=== PATIENT | male | born 1970 | race Caucasian/White ===

== ENCOUNTER 2017-06-12 02:05 | Inpatient (IN) | payer MEDICAID ==
[~2017-06-12] VITALS: Ht 185.4 cm; Wt 91.5 kg
[~2017-06-12 02:05] MED LIST: ATEN-60 PO; PANC3000 PO
[2017-06-12] MEDS ORDERED: ONDANSETRON HCL 4 MG/2 ML VIAL IV ONE ×2 (02:30→07:45)
[2017-06-12] MEDS ORDERED: HYDROmorphone HCL 2 MG/ML VL IV ONE ×2 (02:30→07:45)
[2017-06-12] MEDS: SODIUM CHLORIDE 0.9% 2,000 ML IV ONE ×2 (02:30→03:00)
[2017-06-12 03:04] LABS: Basophils # (auto) 0 uL; Eosinophils # (auto) 0.1 uL; Eosinophils % (auto) 1.9 % (0.0-7.0); Hemoglobin 16.5 g/dL (13.5-17.5); White Blood Cell 5.8 10^3/uL (4.4-10.8)
[2017-06-12 03:06] LABS: Basophils % (auto) 0.4 % (0.0-2.0); Hematocrit 47.7 % (41.0-53.0); Lymphocytes # (auto) 2.7 uL; Mean Corpuscular Hemoglobin 36.9 pg (28.0-32.0); Mean Corpuscular Hgb Conc. 34.6 g/dL (32.0-36.0); Mean Corpuscular Volume 106.7 fL (80.0-100.0); Monocytes # (auto) 0.5 uL; Monocytes % (auto) 8.2 % (0.0-12.0); Neutrophils # (auto) 2.5 uL; Neutrophils % (auto) 43.5 % (37.0-80.0); Nucleated Red Blood Cells % 0.2 %; Red Blood Cells 4.47 10^6/uL (4.5-5.90); Red Cell Distribution Width 14.3 % (11.8-14.3)
[2017-06-12 03:50] LABS: Albumin 3.4 g/dL (3.4-5.0); BUN/Creatinine Ratio 5.8; Bilirubin, Total 3.1 mg/dL (0.2-1.0); Calcium 8.8 mg/dL (8.5-10.1); Lactic Acid w/Reflex 2.2 mmol/L (0.4-2.0); Potassium 3.5 mmol/L (3.5-5.1); Total Protein 8.4 g/dL (6.4-8.2)
[2017-06-12 04:24] LABS: Platelet Count (auto) 56 10^3/uL (140-450)
[2017-06-12] MEDS ORDERED: PROMETHAZINE HCL 25 MG/ML 1ML IV ONE (04:45)
[2017-06-12] MEDS ORDERED: diphenhdrAMINE HCL 50 MG/1 ML VL IV ONE (04:45)
[2017-06-12 05:11] LABS: Urine Bacteria NONE SEEN /hpf (None Seen); Urine Blood Negative /uL (Negative); Urine Hyaline Cast MOD /lpf (0 - 2); Urine Mucus FEW (None Seen); Urine Specific Gravity 1.019 (1.001-1.035); Urine WBC 2 /hpf (0 - 3)
[2017-06-12] MEDS ORDERED: VANCOMYCIN 1GM/250ML 250 ML IV ONE (06:00)
[2017-06-12] MEDS ORDERED: TEMAZEPAM 15 MG CAP PO PRN (09:15)
[2017-06-12] MEDS ORDERED: NITROGLYCERIN 0.4 MG SL TAB SL PRN (09:15)
[2017-06-12] MEDS ORDERED: ACETAMINOPHEN 325 MG TAB PO PRN (09:15)
[2017-06-12] MEDS ORDERED: VANCOMYCIN PER PHARMACY 0 MG IV SCH (09:15)
[2017-06-12] MEDS ORDERED: DEXTROSE (50%) 50ML SYRG IV PRN (09:30)
[2017-06-12] MEDS ORDERED: FAMOTIDINE 20 MG TAB PO SCH (10:00)
[2017-06-12] MEDS: MULTIPLE VITAMIN TAB PO SCH (10:02)
[2017-06-12] MEDS: ATENOLOL 25 MG TAB PO SCH (10:04)
[2017-06-12] MEDS: SODIUM CHLORIDE 0.9% 1,000 ML IV SCH ×2 (10:07→17:33)
[2017-06-12] MEDS: LEVOFLOXACIN 500MG 100 ML IV SCH (10:07)
[2017-06-12] MEDS: diphenhdrAMINE HCL 25 MG CAP PO PRN ×2 (10:30→17:08)
[2017-06-12 10:33] LABS: Albumin 2.8 g/dL (3.4-5.0); BUN/Creatinine Ratio 6.3; Bilirubin, Total 2.7 mg/dL (0.2-1.0); Calcium 7.9 mg/dL (8.5-10.1); Potassium 3.6 mmol/L (3.5-5.1); Total Protein 6.6 g/dL (6.4-8.2)
[2017-06-12] MEDS: InsuLIN REG 1unit/0.01ml Soln (100units/ml) SC SCH ×3 (11:30→22:00)
[2017-06-12] MEDS: HYDROmorphone HCL 2 MG/ML VL IV PRN ×3 (11:45→20:29)
[2017-06-12] MEDS: ONDANSETRON HCL 4 MG/2 ML VIAL IV PRN ×3 (11:45→20:29)
[2017-06-12] MEDS: ACCU-CHEK COMFORT CURVE STRIP VI SCH ×3 (11:47→22:07)
[2017-06-12] MEDS: PANCREATIC ENZYMES 4200 UNIT CAP PO SCH ×2 (13:03→18:04)
[2017-06-12] MEDS: RIFAXIMIN 550 MG TAB PO SCH ×2 (13:53→22:07)
[2017-06-12] MEDS: HYDROcodone-ACET 5/325MG TAB PO PRN ×2 (14:12→18:05)
[2017-06-12 15:39] LABS: INR 1.14 (0.9-1.15); Prothrombin Time 12.4 sec (9.37-12.3)
[2017-06-12] MEDS: VANCOMYCIN 1GM/250ML 250 ML IV SCH (18:05)
[2017-06-12 21:55] VITALS: BP 128/77
[2017-06-12] MEDS: PANTOPRAZOLE 40 MG TAB PO SCH (22:07)
[2017-06-13] MEDS: ONDANSETRON HCL 4 MG/2 ML VIAL IV PRN ×5 (00:16→22:13)
[2017-06-13] MEDS: HYDROmorphone HCL 2 MG/ML VL IV PRN ×6 (00:16→22:13)
[2017-06-13] MEDS: SODIUM CHLORIDE 0.9% 1,000 ML IV SCH ×4 (01:53→23:44)
[2017-06-13] MEDS: HYDROcodone-ACET 5/325MG TAB PO PRN ×3 (02:31→20:30)
[2017-06-13 05:15] VITALS: BP 124/84
[2017-06-13 06:52] LABS: Basophils # (auto) 0 uL; Eosinophils # (auto) 0.2 uL; Hemoglobin 12.9 g/dL (13.5-17.5); Lymphocytes # (auto) 2.1 uL; Lymphocytes % (auto) 48.7 % (10.0-50.0); Monocytes # (auto) 0.3 uL; Neutrophils # (auto) 1.7 uL; White Blood Cell 4.4 10^3/uL (4.4-10.8)
[2017-06-13 06:58] LABS: Basophils % (auto) 0.6 % (0.0-2.0); Eosinophils % (auto) 4.1 % (0.0-7.0); Hematocrit 37.7 % (41.0-53.0); Mean Corpuscular Hemoglobin 37.2 pg (28.0-32.0); Mean Corpuscular Hgb Conc. 34.3 g/dL (32.0-36.0); Mean Corpuscular Volume 108.4 fL (80.0-100.0); Monocytes % (auto) 7.5 % (0.0-12.0); Neutrophils % (auto) 39.1 % (37.0-80.0); Nucleated Red Blood Cells % 0.3 %; Platelet Count (auto) 43 10^3/uL (140-450); Red Blood Cells 3.48 10^6/uL (4.5-5.90); Red Cell Distribution Width 14.2 % (11.8-14.3)
[2017-06-13] MEDS: InsuLIN REG 1unit/0.01ml Soln (100units/ml) SC SCH ×2 (07:00→11:30)
[2017-06-13] MEDS: ACCU-CHEK COMFORT CURVE STRIP VI SCH ×2 (07:07→11:46)
[2017-06-13 07:32] LABS: Albumin 2.6 g/dL (3.4-5.0); BUN/Creatinine Ratio 4.7; Bilirubin, Total 2.4 mg/dL (0.2-1.0); Calcium 7.9 mg/dL (8.5-10.1); Potassium 3.8 mmol/L (3.5-5.1); Total Protein 6.2 g/dL (6.4-8.2)
[2017-06-13 08:00] VITALS: BP 119/79
[2017-06-13] MEDS: PANCREATIC ENZYMES 4200 UNIT CAP PO SCH ×4 (08:00→18:01)
[2017-06-13] MEDS: VANCOMYCIN 1GM/250ML 250 ML IV SCH (08:18)
[2017-06-13 08:51] VITALS: BP 119/79
[2017-06-13] MEDS ORDERED: LIDOCAINE VISCOUS 2% 15ML UD ONE (08:57)
[2017-06-13] MEDS ORDERED: NALOXONE HCL 0.4 MG/ML VIAL ONE (08:57)
[2017-06-13] MEDS ORDERED: FLUMAZENIL 0.1 MG/ML INJ 10ML MDV IV ONE (08:57)
[2017-06-13] MEDS ORDERED: SODIUM CHLORIDE LOCK 10 ML ONE (08:57)
[2017-06-13] MEDS ORDERED: diphenhdrAMINE HCL 50 MG/1 ML VL ONE (08:57)
[2017-06-13] MEDS: MULTIPLE VITAMIN TAB PO SCH (09:45)
[2017-06-13] MEDS: ATENOLOL 25 MG TAB PO SCH (09:45)
[2017-06-13] MEDS: LEVOFLOXACIN 500MG 100 ML IV SCH (09:45)
[2017-06-13] MEDS: PANTOPRAZOLE 40 MG TAB PO SCH ×2 (09:45→21:24)
[2017-06-13] MEDS: RIFAXIMIN 550 MG TAB PO SCH ×3 (09:46→21:23)
[2017-06-13] MEDS: MIDAZOLAM HCL 5 MG/ML-1ML VIAL ONE ×2 (12:21→12:25)
[2017-06-13] MEDS: diphenhdrAMINE HCL 25 MG CAP PO PRN (12:21)
[2017-06-13] MEDS: fentaNYL CITRATE 100 MCG/2 ML VL ONE ×2 (12:21→12:25)
[2017-06-13 12:37] VITALS: BP 150/89
[2017-06-13] MEDS ORDERED: NICOTINE 21MG/24 HR TOPICAL PATCH TD ONE (15:15)
[2017-06-13 16:19] VITALS: BP 120/86
[2017-06-13 20:00] VITALS: BP 142/100
[2017-06-14] VITALS (7 sets, daily range): BP systolic 126–148; BP diastolic 90–100
[2017-06-14] MEDS: HYDROcodone-ACET 5/325MG TAB PO PRN ×5 (00:33→22:11)
[2017-06-14] MEDS: HYDROmorphone HCL 2 MG/ML VL IV PRN ×6 (02:29→23:35)
[2017-06-14] MEDS: ONDANSETRON HCL 4 MG/2 ML VIAL IV PRN ×6 (02:30→23:32)
[2017-06-14] MEDS: SODIUM CHLORIDE 0.9% 1,000 ML IV SCH ×2 (06:10→22:12)
[2017-06-14 07:39] LABS: Basophils # (auto) 0 uL; Eosinophils # (auto) 0.2 uL; Neutrophils # (auto) 1.6 uL
[2017-06-14 07:41] LABS: Basophils % (auto) 0.8 % (0.0-2.0); Eosinophils % (auto) 3.6 % (0.0-7.0); Hemoglobin 12.9 g/dL (13.5-17.5); Lymphocytes # (auto) 2.5 uL; Lymphocytes % (auto) 53.9 % (10.0-50.0); Mean Corpuscular Hemoglobin 36.7 pg (28.0-32.0); Mean Corpuscular Volume 107.9 fL (80.0-100.0); Monocytes # (auto) 0.3 uL; Monocytes % (auto) 7.5 % (0.0-12.0); Neutrophils % (auto) 34.2 % (37.0-80.0); Nucleated Red Blood Cells % 0.3 %; Platelet Count (auto) 48 10^3/uL (140-450); Red Blood Cells 3.52 10^6/uL (4.5-5.90); Red Cell Distribution Width 14.3 % (11.8-14.3); White Blood Cell 4.6 10^3/uL (4.4-10.8)
[2017-06-14 07:59] LABS: Albumin 2.7 g/dL (3.4-5.0); Bilirubin, Direct 1.1 mg/dL (0-0.2); Total Protein 6.3 g/dL (6.4-8.2)
[2017-06-14] MEDS: PANCREATIC ENZYMES 4200 UNIT CAP PO SCH ×3 (08:26→18:24)
[2017-06-14] MEDS: NICOTINE 21MG/24 HR TOPICAL PATCH TD SCH (10:00)
[2017-06-14] MEDS: MULTIPLE VITAMIN TAB PO SCH (10:28)
[2017-06-14] MEDS: PANTOPRAZOLE 40 MG TAB PO SCH ×2 (10:28→22:10)
[2017-06-14] MEDS: ATENOLOL 25 MG TAB PO SCH (10:30)
[2017-06-14] MEDS: RIFAXIMIN 550 MG TAB PO SCH ×2 (10:32→22:10)
[2017-06-15] MEDS: HYDROcodone-ACET 5/325MG TAB PO PRN ×4 (02:13→12:56)
[2017-06-15] MEDS: SODIUM CHLORIDE 0.9% 1,000 ML IV SCH ×2 (05:20→11:43)
[2017-06-15 05:29] VITALS: BP 149/94
[2017-06-15] MEDS: HYDROmorphone HCL 2 MG/ML VL IV PRN ×3 (06:13→14:50)
[2017-06-15] MEDS: ONDANSETRON HCL 4 MG/2 ML VIAL IV PRN ×3 (06:13→14:53)
[2017-06-15 07:32] LABS: Albumin 2.7 g/dL (3.4-5.0); Bilirubin, Direct 0.8 mg/dL (0-0.2); Bilirubin, Total 1.5 mg/dL (0.2-1.0); Total Protein 6.1 g/dL (6.4-8.2)
[2017-06-15 08:00] VITALS: BP 149/93
[2017-06-15] MEDS: PANCREATIC ENZYMES 4200 UNIT CAP PO SCH ×2 (08:22→11:43)
[2017-06-15 08:53] VITALS: BP 149/93
[2017-06-15] MEDS: MULTIPLE VITAMIN TAB PO SCH (09:04)
[2017-06-15] MEDS: ATENOLOL 25 MG TAB PO SCH (09:04)
[2017-06-15] MEDS: PANTOPRAZOLE 40 MG TAB PO SCH (09:05)
[2017-06-15] MEDS: RIFAXIMIN 550 MG TAB PO SCH (09:05)
[2017-06-15] MEDS: NICOTINE 21MG/24 HR TOPICAL PATCH TD SCH ×2 (09:06→09:09)
[2017-06-15 13:49] VITALS: BP 145/97
[2017-06-15] MEDS ORDERED: OMEP20CA74 PO (14:04)
[2017-06-15] MEDS ORDERED: HYDR-4683 PO ×2 (14:04→15:12)
[2017-06-15] MEDS ORDERED: FOLI1TAB6 PO (14:04)
[2017-06-15] MEDS ORDERED: RIFA550T PO (15:12)
[2017-06-15 15:53] VITALS: BP 145/97
[2017-06-16] MEDS ORDERED: SODIUM CHLORIDE 0.9% 1,000 ML IV SCH (09:13)
== END 2017-06-15 16:40 | disposition home or self-care (01) | DRG 720 ==
LOC: ER 02:12 → TELE 02:13 → TELE-WESTW 17:12
PROVIDERS: ADMIT Internal Medicine; ATTEND Internal Medicine
PROC: 0DJ08ZZ Inspection of Upper Intestinal Tract, Via Natural or Artificial Opening Endoscopic (ICD-10-PCS; principal; 2017-06-13 12:19)
DX: A41.9 Sepsis, unspecified organism (principal); K76.6 Portal hypertension; D69.6 Thrombocytopenia, unspecified; K86.1 Other chronic pancreatitis; K86.81 Exocrine pancreatic insufficiency; K70.30 Alcoholic cirrhosis of liver without ascites; I12.9 Hypertensive chronic kidney disease with stage 1 through stage 4 chronic kidney disease, or unspecified chronic kidney disease; K57.30 Diverticulosis of large intestine without perforation or abscess without bleeding; K21.9 Gastro-esophageal reflux disease without esophagitis; I70.8 Atherosclerosis of other arteries; E86.0 Dehydration; F17.210 Nicotine dependence, cigarettes, uncomplicated; R73.9 Hyperglycemia, unspecified; K31.89 Other diseases of stomach and duodenum; K76.0 Fatty (change of) liver, not elsewhere classified; N18.2 Chronic kidney disease, stage 2 (mild); Z90.49 Acquired absence of other specified parts of digestive tract; Z88.1 Allergy status to other antibiotic agents; Z88.5 Allergy status to narcotic agent; Z79.899 Other long term (current) drug therapy; Z80.8 Family history of malignant neoplasm of other organs or systems; Z82.49 Family history of ischemic heart disease and other diseases of the circulatory system; Z71.3 Dietary counseling and surveillance
CPT/HCPCS: 36415; 43235; 74176; 80053; 80076; 81001; 82140; 82150; 82270; 82705; 82962; 83036; 83605; 83690; 85025; 85610; 87040; 87086; 96361; 96365; 96366; 96367; 96375; 96376; J1956; J2250; J2405

== ENCOUNTER 2017-07-17 06:37 | Emergency (ER) | payer MEDICAID ==
[~2017-07-17] VITALS: Ht 182.9 cm; Wt 79.2 kg
[~2017-07-17 06:37] MED LIST changes: +FOLI1TAB6 PO; +HYDR-4683 PO; +OMEP20CA74 PO; +RIFA550T PO
[2017-07-17] MEDS ORDERED: MORPHINE SULF INJ 2 MG/ML SYRINGE 1ML IV ONE (08:00)
[2017-07-17] MEDS ORDERED: NALBUPHINE HCL 10 MG/1ml INJECTION IV ONE (08:00)
[2017-07-17] MEDS ORDERED: ONDANSETRON HCL 4 MG/2 ML VIAL IV ONE (08:00)
[2017-07-17 08:23] LABS: Basophils # (auto) 0.1 uL; Basophils % (auto) 0.8 % (0.0-2.0); Eosinophils # (auto) 0.8 uL; Lymphocytes # (auto) 2.9 uL; Lymphocytes % (auto) 29.2 % (10.0-50.0); Monocytes # (auto) 0.9 uL; Neutrophils # (auto) 5.3 uL
[2017-07-17 08:26] LABS: Eosinophils % (auto) 8.4 % (0.0-7.0); Hematocrit 41.7 % (41.0-53.0); Hemoglobin 14.7 g/dL (13.5-17.5); Mean Corpuscular Hemoglobin 35.9 pg (28.0-32.0); Mean Corpuscular Hgb Conc. 35.2 g/dL (32.0-36.0); Mean Platelet Volume 11.4 fL (6.9-10.8); Monocytes % (auto) 8.7 % (0.0-12.0); Neutrophils % (auto) 52.9 % (37.0-80.0); Nucleated Red Blood Cells % 0.1 %; Red Cell Distribution Width 12.9 % (11.8-14.3)
[2017-07-17 08:38] LABS: Urine Bilirubin Negative (Negative); Urine Blood Negative /uL (Negative); Urine Color Yellow (Yellow); Urine Glucose Normal (Normal); Urine Ketone Negative (Negative); Urine Nitrite Negative (Negative); Urine RBC <1 /hpf (0 - 3); Urine Urobilinogen Normal (Negative)
[2017-07-17 08:40] LABS: Platelet Count (auto) 92 10^3/uL (140-450)
[2017-07-17 09:02] LABS: Albumin 3.6 g/dL (3.4-5.0); Alkaline Phosphatase 82 U/L (45-117); Amylase 28 U/L (25-115); Anion Gap 8 (5-15); Aspartate Aminotransferase 16 U/L (15-37); BUN/Creatinine Ratio 11.1; Bilirubin, Total 0.6 mg/dL (0.2-1.0); Blood Urea Nitrogen 8 mg/dL (7-18); Calcium 8.8 mg/dL (8.5-10.1); Carbon Dioxide 28 mmol/L (21-32); Chloride 96 mmol/L (98-107); GFR African American 153 mL/min; GFR Non-African American 126 mL/min; Glucose 128 mg/dL (74-106); Sodium 132 mmol/L (136-145); Total Protein 7.2 g/dL (6.4-8.2)
[2017-07-17 09:30] VITALS: BP 119/78
[2017-07-17] MEDS ORDERED: diphenhdrAMINE HCL 50 MG/1 ML VL IV ONE (09:30)
[2017-07-17 09:50] LABS: Macrocytosis Slight; Platelet Estimate Decreased; Stomatocytes Few
== END 2017-07-17 10:10 | disposition home or self-care (01) ==
LOC: ER 06:44
DX: K86.1 Other chronic pancreatitis (principal); K21.9 Gastro-esophageal reflux disease without esophagitis; I10 Essential (primary) hypertension; F17.210 Nicotine dependence, cigarettes, uncomplicated; Z90.49 Acquired absence of other specified parts of digestive tract; Z88.6 Allergy status to analgesic agent
CPT/HCPCS: 36415; 74176; 80053; 81001; 82150; 83690; 83735; 84484; 85025; 93005; 96374; 96375; 99285; J1200; J2300; J2405

== ENCOUNTER 2017-09-05 08:19 | Emergency (ER) | payer MEDICAID ==
[~2017-09-05] VITALS: Ht 185.4 cm; Wt 86.2 kg
[2017-09-05 10:49] LABS: Mean Corpuscular Hemoglobin 35.4 pg (28.0-32.0); Neutrophils # (auto) 1.9 uL; White Blood Cell 6.9 10^3/uL (4.4-10.8)
[2017-09-05 10:51] LABS: Basophils # (auto) 0 uL; Basophils % (auto) 0.7 % (0.0-2.0); Eosinophils # (auto) 0.8 uL; Eosinophils % (auto) 11.3 % (0.0-7.0); Hemoglobin 15.3 g/dL (13.5-17.5); Lymphocytes # (auto) 3.4 uL; Lymphocytes % (auto) 48.7 % (10.0-50.0); Mean Corpuscular Hgb Conc. 34.7 g/dL (32.0-36.0); Mean Corpuscular Volume 102.1 fL (80.0-100.0); Monocytes # (auto) 0.8 uL; Monocytes % (auto) 11.2 % (0.0-12.0); Neutrophils % (auto) 28.1 % (37.0-80.0); Nucleated Red Blood Cells % 0.1 %; Red Blood Cells 4.31 10^6/uL (4.5-5.90); Red Cell Distribution Width 12.6 % (11.8-14.3)
[2017-09-05 11:10] LABS: Albumin 3.8 g/dL (3.4-5.0); BUN/Creatinine Ratio 8.9; Bilirubin, Total 0.4 mg/dL (0.2-1.0); Calcium 8.7 mg/dL (8.5-10.1); Potassium 3.8 mmol/L (3.5-5.1); Total Protein 7.7 g/dL (6.4-8.2)
[2017-09-05 11:12] LABS: Platelet Count (auto) 98 10^3/uL (140-450)
[2017-09-05 11:33] VITALS: BP 137/88
== END 2017-09-05 11:55 | disposition home or self-care (01) ==
LOC: ER 08:19
DX: K86.1 Other chronic pancreatitis (principal); K59.00 Constipation, unspecified; K21.9 Gastro-esophageal reflux disease without esophagitis; I10 Essential (primary) hypertension; F17.210 Nicotine dependence, cigarettes, uncomplicated; Z88.1 Allergy status to other antibiotic agents; Z88.5 Allergy status to narcotic agent; Z88.8 Allergy status to other drugs, medicaments and biological substances; Z90.49 Acquired absence of other specified parts of digestive tract
CPT/HCPCS: 36415; 74176; 80053; 82962; 83690; 85025

== ENCOUNTER 2018-04-11 07:24 | Emergency (ER) | payer MEDICAID ==
[~2018-04-11] VITALS: Ht 185.4 cm; Wt 86.2 kg
[2018-04-11 08:41] LABS: Basophils # (auto) 0.1 uL; Hemoglobin 16.1 g/dL (13.5-17.5); Lymphocytes # (auto) 3.7 uL; Mean Corpuscular Hgb Conc. 34.7 g/dL (32.0-36.0); Monocytes # (auto) 0.6 uL; Monocytes % (auto) 7.9 % (0.0-12.0)
[2018-04-11 08:43] LABS: Basophils % (auto) 0.8 % (0.0-2.0); Eosinophils # (auto) 0.5 uL; Eosinophils % (auto) 5.9 % (0.0-7.0); Hematocrit 46.2 % (41.0-53.0); Lymphocytes % (auto) 47.1 % (10.0-50.0); Mean Corpuscular Hemoglobin 36.1 pg (28.0-32.0); Mean Corpuscular Volume 103.9 fL (80.0-100.0); Neutrophils % (auto) 38.3 % (37.0-80.0); Nucleated Red Blood Cells % 0.1 %; Platelet Count (auto) 150 10^3/uL (140-450); Red Blood Cells 4.45 10^6/uL (4.5-5.90); Red Cell Distribution Width 12.6 % (11.8-14.3); White Blood Cell 7.8 10^3/uL (4.4-10.8)
[2018-04-11 08:45] LABS: Urine Bacteria FEW /hpf (None Seen); Urine Blood Negative /uL (Negative); Urine Specific Gravity 1.002 (1.001-1.035); Urine WBC <1 /hpf (0 - 3)
[2018-04-11 09:01] LABS: BUN/Creatinine Ratio 11.4; Bilirubin, Total 0.5 mg/dL (0.2-1.0); Calcium 8.2 mg/dL (8.5-10.1)
[2018-04-11 12:35] VITALS: BP 129/87
== END 2018-04-11 13:30 | disposition home or self-care (01) ==
LOC: ER 07:27
DX: S90.31XA Contusion of right foot, initial encounter (principal); R10.9 Unspecified abdominal pain; G89.29 Other chronic pain; K21.9 Gastro-esophageal reflux disease without esophagitis; I10 Essential (primary) hypertension; F17.210 Nicotine dependence, cigarettes, uncomplicated; Z88.5 Allergy status to narcotic agent; Z88.8 Allergy status to other drugs, medicaments and biological substances; Z90.49 Acquired absence of other specified parts of digestive tract; W18.39XA Other fall on same level, initial encounter; Y93.89 Activity, other specified; Y99.8 Other external cause status; Y92.89 Other specified places as the place of occurrence of the external cause
CPT/HCPCS: 36415; 73630; 74176; 80053; 81001; 83690; 84443; 85025

== ENCOUNTER 2019-11-09 19:21 | Emergency (ER) | payer MEDICAID, SELFPAY ==
[~2019-11-09] VITALS: Ht 185.4 cm; Wt 78.6 kg
[~2019-11-09 19:21] MED LIST changes: -HYDR-4683 PO; +HYDR-4833 PO
[2019-11-09 21:10] VITALS: BP 128/60
[2019-11-09 21:28] LABS: Urine WBC None Seen /hpf (0 - 3)
[2019-11-09 21:33] LABS: Urine Bacteria NONE SEEN /hpf (None Seen); Urine Blood Negative /uL (Negative); Urine Specific Gravity 1.006 (1.001-1.035)
[2019-11-09 21:34] LABS: Basophils # (auto) 0.1 10 ^3/uL (0-0.2); Eosinophils # (auto) 0.4 10 ^3/uL (0-0.8); Nucleated Red Blood Cells % 0.1 %; White Blood Cell 7.1 10^3/uL (4.4-10.8)
[2019-11-09 21:35] LABS: Basophils % (auto) 1.5 % (0.0-2.0); Eosinophils % (auto) 5.9 % (0.0-7.0); Hematocrit 48.4 % (41.0-53.0); Hemoglobin 16.7 g/dL (13.5-17.5); Lymphocytes # (auto) 3.7 10 ^3/uL (0.4-5.4); Lymphocytes % (auto) 51.8 % (10.0-50.0); Mean Corpuscular Hemoglobin 37.6 pg (28.0-32.0); Mean Corpuscular Hgb Conc. 34.6 g/dL (32.0-36.0); Mean Corpuscular Volume 108.7 fL (80.0-100.0); Monocytes # (auto) 0.6 10 ^3/uL (0-1.3); Monocytes % (auto) 8.7 % (0.0-12.0); Neutrophils # (auto) 2.3 10 ^3/uL (1.6-8.6); Neutrophils % (auto) 32.1 % (37.0-80.0); Platelet Count (auto) 139 10^3/uL (140-450); Red Blood Cells 4.45 10^6/uL (4.5-5.90); Red Cell Distribution Width 12.6 % (11.8-14.3)
[2019-11-09 21:48] LABS: Alanine Aminotransferase 47 U/L (16-61); Albumin 4.1 g/dL (3.4-5.0); Anion Gap 9 (5-15); Aspartate Aminotransferase 34 U/L (15-37); BUN/Creatinine Ratio 9.1; Blood Urea Nitrogen 8 mg/dL (7-18); Carbon Dioxide 25 mmol/L (21-32); Chloride 100 mmol/L (98-107); GFR African American 119 mL/min; GFR Non-African American 99 mL/min; Glucose 114 mg/dL (74-106); Magnesium 1.9 mg/dL (1.6-2.6); Potassium 3.7 mmol/L (3.5-5.1); Sodium 134 mmol/L (136-145)
[2019-11-09] MEDS ORDERED: GABAPENTIN 300 MG CAP ONE (21:49)
[2019-11-09] MEDS ORDERED: KETOROLAC TROMETH 30 MG/ML 1ML VIAL ONE (21:49)
[2019-11-09 22:19] LABS: Alkaline Phosphatase 87 U/L (45-117); Bilirubin, Total 0.4 mg/dL (0.2-1.0); Calcium 8.4 mg/dL (8.5-10.1)
[2019-11-09] MEDS ORDERED: KETOROLAC TROMETH 15 mg/ml 1ML VL IV ONE (22:30)
[2019-11-09] MEDS ORDERED: GABAPENTIN 400 MG CAP PO ONE (22:30)
== END 2019-11-10 01:50 | disposition home or self-care (01) ==
LOC: ER 19:21
DX: J20.9 Acute bronchitis, unspecified (principal); F10.129 Alcohol abuse with intoxication, unspecified; K21.9 Gastro-esophageal reflux disease without esophagitis; I10 Essential (primary) hypertension; F17.210 Nicotine dependence, cigarettes, uncomplicated; Z90.49 Acquired absence of other specified parts of digestive tract; Z20.828 Contact with and (suspected) exposure to other viral communicable diseases; Y90.9 Presence of alcohol in blood, level not specified
CPT/HCPCS: 36415; 71045; 80053; 80320; 81001; 83735; 83880; 84484; 85025; 87635; 87804; 93005; 96374; 99285; J1885

== ENCOUNTER 2020-12-15 21:46 | Inpatient (IN) | payer MEDICAID ==
[~2020-12-15] VITALS: Ht 180.3 cm; Wt 73.6 kg
[2020-12-15 21:50] VITALS: BP 74/34
[2020-12-15] MEDS ORDERED: fentaNYL Drip 2500mCg/250mlNS 250 ML IV ONE (21:53)
[2020-12-15] MEDS: NOREPINEPHRINE 8 MG/250ML KIT 250 ML IV SCH (21:55)
[2020-12-15] MEDS ORDERED: SODIUM CHLORIDE 0.9% 2,000 ML IV ONE (22:00)
[2020-12-15 22:13] LABS: Hemoglobin 14.5 g/dL (13.5-17.5)
[2020-12-15 22:15] LABS: Hematocrit 44.4 % (41.0-53.0); Mean Corpuscular Hemoglobin 34.6 pg (28.0-32.0); Mean Corpuscular Hgb Conc. 32.7 g/dL (32.0-36.0); Mean Corpuscular Volume 105.9 fL (80.0-100.0); Red Cell Distribution Width 13.2 % (11.8-14.3); White Blood Cell 15.3 10^3/uL (4.4-10.8)
[2020-12-15 22:29] LABS: Basophils % (manual) 0 (0.0-2.0); Blast Cells 0; Myelocytes % 0; Promyelocytes % 0
[2020-12-15 22:30] LABS: Albumin 3.4 g/dL (3.4-5.0); Calcium 8.4 mg/dL (8.5-10.1); Magnesium 3.6 mg/dL (1.6-2.6); Potassium 4.7 mmol/L (3.5-5.1)
[2020-12-15 22:36] LABS: BUN/Creatinine Ratio 6.3; Bilirubin, Total 0.4 mg/dL (0.2-1.0); Total Protein 6.8 g/dL (6.4-8.2)
[2020-12-15 22:39] LABS: INR 1.03 (0.9-1.15); Partial Thromboplastin Time 29.4 sec (23.0-31.2)
[2020-12-15] MEDS: fentaNYL Drip 2500mCg/250mlNS 250 ML IV SCH (22:50)
[2020-12-15] MEDS: MIDAZOLAM DRIP 50 mg/50mL 50 ML IV SCH (22:53)
[2020-12-15 23:12] LABS: Band Neutrophils % (manual) 6; Eosinophils % (manual) 3 (0-7); Lymphocytes % (manual) 33 (10.0-50.0); Metamyelocytes % 1; Monocytes % (manual) 12 (0-12); Reactive Lymphocytes 1
[2020-12-15 23:23] VITALS: BP 71/34
[2020-12-15 23:41] LABS: Lactic Acid w/Reflex 3.3 mmol/L (0.4-2.0)
[2020-12-16] VITALS (92 sets, daily range): BP systolic 97–157; BP diastolic 68–104
[2020-12-16] MEDS ORDERED: IOHEXOL 350 MG/ML 100ML IJ ONE (00:05)
[2020-12-16] MEDS ORDERED: ENOXAPARIN SOD 100 MG/1 ML SYRINGE SC ONE (02:45)
[2020-12-16] MEDS ORDERED: NITROGLYCERIN 0.4 MG SL TAB SL PRN (02:45)
[2020-12-16] MEDS ORDERED: ONDANSETRON HCL 4 MG/2 ML VIAL IV PRN (02:45)
[2020-12-16] MEDS ORDERED: MORPHINE SULFATE INJECTION 2 MG/ML SYRG IV PRN (02:45)
[2020-12-16 03:01] LABS: Urine Bacteria FEW /hpf (None Seen); Urine Blood 2+ /uL (Negative); Urine Specific Gravity 1.012 (1.001-1.035); Urine Sperm PRESENT /hpf (None Seen); Urine WBC 3 /hpf (0 - 3)
[2020-12-16 03:18] LABS: Alcohol, Urine < 3.0 mg/dL (0-10); Amphetamine Screen, Urine POSITIVE (NEGATIVE); Barbiturate Scree,Urine NEGATIVE (NEGATIVE); Benzodiazephine Screen, Urine POSITIVE (NEGATIVE); Cannabinoid Screen, Urine NEGATIVE (NEGATIVE); Cocaine Screen, Urine NEGATIVE (NEGATIVE); Phencyclidine Screen, Urine NEGATIVE (NEGATIVE)
[2020-12-16 03:58] LABS: Opiate Scree,Urine NEGATIVE (NEGATIVE)
[2020-12-16 04:55] LABS: Basophils # (auto) 0 10 ^3/uL (0-0.2); Basophils % (auto) 0.2 % (0.0-2.0); Eosinophils # (auto) 0 10 ^3/uL (0-0.8); Lymphocytes # (auto) 0.5 10 ^3/uL (0.4-5.4); White Blood Cell 16.4 10^3/uL (4.4-10.8)
[2020-12-16 04:57] LABS: Hematocrit 43.2 % (41.0-53.0); Hemoglobin 14.7 g/dL (13.5-17.5); Mean Corpuscular Hemoglobin 34.5 pg (28.0-32.0); Mean Corpuscular Volume 101.4 fL (80.0-100.0); Monocytes # (auto) 0.8 10 ^3/uL (0-1.3); Monocytes % (auto) 5.2 % (0.0-12.0); Neutrophils % (auto) 91.6 % (37.0-80.0); Nucleated Red Blood Cells % 0.1 %; Red Blood Cells 4.27 10^6/uL (4.5-5.90)
[2020-12-16 05:11] LABS: Albumin 3.7 g/dL (3.4-5.0); BUN/Creatinine Ratio 15.6; Calcium 7.9 mg/dL (8.5-10.1); Magnesium 2.1 mg/dL (1.6-2.6); Potassium 4.3 mmol/L (3.5-5.1)
[2020-12-16 05:13] LABS: INR 1.08 (0.9-1.15); Partial Thromboplastin Time 25.8 sec (23.0-31.2)
[2020-12-16 05:23] LABS: Phosphorus 5.2 mg/dL (2.5-4.90)
[2020-12-16 05:26] LABS: Bilirubin, Total 0.5 mg/dL (0.2-1.0); Total Protein 6.9 g/dL (6.4-8.2)
[2020-12-16] MEDS: SODIUM CHLORIDE 0.9% 1,000 ML IV SCH ×3 (06:23→19:46)
[2020-12-16] MEDS: levoFLOXacin 500MG 100 ML IV SCH (06:25)
[2020-12-16] MEDS: PANTOPRAZOLE 40 MG/10 ML VIAL INJ IV SCH (08:56)
[2020-12-16] MEDS: MIDAZOLAM DRIP 50 mg/50mL 50 ML IV SCH ×2 (08:58→18:43)
[2020-12-16] MEDS ORDERED: ASPirin 81 mg TAB PO SCH (10:00)
[2020-12-16] MEDS ORDERED: ENOXAPARIN SOD 40 MG/0.4 ML SYRINGE SC ONE (10:15)
[2020-12-16] MEDS: NOREPINEPHRINE 8 MG/250ML KIT 250 ML IV SCH (11:20)
[2020-12-16 11:30] LABS: BUN/Creatinine Ratio 21.4; Calcium 8.1 mg/dL (8.5-10.1); Magnesium 2.4 mg/dL (1.6-2.6); Potassium 3.7 mmol/L (3.5-5.1)
[2020-12-16] MEDS: METOCLOPRAMIDE HCL 5MG/ml INJ 2ml VIAL IV SCH ×2 (16:22→22:57)
[2020-12-16 19:04] LABS: Calcium 7.9 mg/dL (8.5-10.1); Magnesium 2.4 mg/dL (1.6-2.6)
[2020-12-16 19:09] LABS: BUN/Creatinine Ratio 23.8
[2020-12-16] MEDS: fentaNYL Drip 2500mCg/250mlNS 250 ML IV SCH (22:00)
[2020-12-16 22:35] LABS: Folate (Folic Acid) 16.71 ng/mL (5.38-24)
[2020-12-16] MEDS ORDERED: ASPI-543 PO (23:21)
[2020-12-17] VITALS (92 sets, daily range): BP systolic 96–175; BP diastolic 58–108
[2020-12-17] MEDS: NOREPINEPHRINE 8 MG/250ML KIT 250 ML IV SCH ×2 (01:00→18:20)
[2020-12-17 02:30] LABS: Basophils # (auto) 0 10 ^3/uL (0-0.2); Eosinophils # (auto) 0 10 ^3/uL (0-0.8); Lymphocytes # (auto) 0.6 10 ^3/uL (0.4-5.4); Monocytes # (auto) 0.5 10 ^3/uL (0-1.3)
[2020-12-17 02:32] LABS: Basophils % (auto) 0.1 % (0.0-2.0); Hematocrit 41.8 % (41.0-53.0); Lymphocytes % (auto) 5.1 % (10.0-50.0); Mean Corpuscular Hemoglobin 34.2 pg (28.0-32.0); Mean Corpuscular Hgb Conc. 33.4 g/dL (32.0-36.0); Mean Corpuscular Volume 102.1 fL (80.0-100.0); Neutrophils # (auto) 10.9 10 ^3/uL (1.6-8.6); Neutrophils % (auto) 90.8 % (37.0-80.0); Red Cell Distribution Width 13.4 % (11.8-14.3)
[2020-12-17 02:47] LABS: INR 1.11 (0.9-1.15); Partial Thromboplastin Time 33.3 sec (23.0-31.2)
[2020-12-17 03:59] LABS: Albumin 3.1 g/dL (3.4-5.0); Potassium 3.9 mmol/L (3.5-5.1)
[2020-12-17 04:14] LABS: BUN/Creatinine Ratio 25.7; Bilirubin, Total 0.4 mg/dL (0.2-1.0); Phosphorus 4.5 mg/dL (2.5-4.90); Total Protein 6.1 g/dL (6.4-8.2)
[2020-12-17] MEDS: MIDAZOLAM DRIP 50 mg/50mL 50 ML IV SCH ×3 (04:45→16:43)
[2020-12-17] MEDS: METOCLOPRAMIDE HCL 5MG/ml INJ 2ml VIAL IV SCH ×3 (05:53→21:56)
[2020-12-17] MEDS: SODIUM CHLORIDE 0.9% 1,000 ML IV SCH ×2 (06:40→21:56)
[2020-12-17] MEDS: PANTOPRAZOLE 40 MG/10 ML VIAL INJ IV SCH (09:03)
[2020-12-17] MEDS: LABETALOL HCL 5 MG/ML 4ML SYRINGE IV PRN ×2 (09:04→15:23)
[2020-12-17] MEDS: levoFLOXacin 500MG 100 ML IV SCH (09:07)
[2020-12-17] MEDS ORDERED: ENOXAPARIN SOD 40 MG/0.4 ML SYRINGE SC SCH (10:00)
[2020-12-17] MEDS ORDERED: ASPirin 81 mg TAB PO SCH (10:00)
[2020-12-17 13:10] LABS: Hepatitis A Ab IgM Negative; Hepatitis B Core IgM Negative
[2020-12-17 13:11] LABS: Hepatitis B Surface Antigen Negative (Negative); Hepatitis C Antibody Negative (Negative)
[2020-12-17 17:08] LABS: BUN/Creatinine Ratio 25.5; Calcium 7.4 mg/dL (8.5-10.1); Magnesium 2.1 mg/dL (1.6-2.6); Potassium 3.7 mmol/L (3.5-5.1)
[2020-12-17] MEDS ORDERED: NOREPINEPHRINE 8 MG/250ML KIT 250 ML IV SCH (18:15)
[2020-12-17] MEDS: fentaNYL Drip 2500mCg/250mlNS 250 ML IV SCH (22:00)
[2020-12-18] VITALS (51 sets, daily range): BP systolic 79–231; BP diastolic 39–155
[2020-12-18] MEDS: LABETALOL HCL 5 MG/ML 4ML SYRINGE IV PRN ×2 (00:28→02:39)
[2020-12-18] MEDS ORDERED: dilTIAZem 25 MG/5 ML VIAL IV ONE ×2 (01:38→01:45)
[2020-12-18 04:38] LABS: Basophils # (auto) 0 10 ^3/uL (0-0.2); Eosinophils # (auto) 0 10 ^3/uL (0-0.8); Eosinophils % (auto) 0.1 % (0.0-7.0); Hematocrit 45.7 % (41.0-53.0); Lymphocytes # (auto) 1.9 10 ^3/uL (0.4-5.4); Neutrophils # (auto) 10.3 10 ^3/uL (1.6-8.6); Nucleated Red Blood Cells % 0.1 %; Red Blood Cells 4.51 10^6/uL (4.5-5.90); White Blood Cell 13.3 10^3/uL (4.4-10.8)
[2020-12-18 04:40] LABS: Basophils % (auto) 0.2 % (0.0-2.0); Hemoglobin 15.6 g/dL (13.5-17.5); Lymphocytes % (auto) 14.2 % (10.0-50.0); Mean Corpuscular Hemoglobin 34.6 pg (28.0-32.0); Mean Corpuscular Hgb Conc. 34.1 g/dL (32.0-36.0); Mean Corpuscular Volume 101.4 fL (80.0-100.0); Monocytes % (auto) 7.5 % (0.0-12.0); Red Cell Distribution Width 13.3 % (11.8-14.3)
[2020-12-18 04:50] LABS: Potassium 3.8 mmol/L (3.5-5.1)
[2020-12-18 04:58] LABS: Albumin 3.2 g/dL (3.4-5.0); BUN/Creatinine Ratio 22.7; Bilirubin, Total 0.4 mg/dL (0.2-1.0); Calcium 8.7 mg/dL (8.5-10.1); Total Protein 6.7 g/dL (6.4-8.2)
[2020-12-18] MEDS ORDERED: SOD CHL 0.45% 1,000 ML IV SCH (05:30)
[2020-12-18] MEDS: METOCLOPRAMIDE HCL 5MG/ml INJ 2ml VIAL IV SCH (06:24)
[2020-12-18] MEDS ORDERED: LORazepam 2MG/ML-1ML VIAL IV PRN (09:30)
[2020-12-18] MEDS ORDERED: MORPHINE SULFATE INJECTION 2 MG/ML SYRG IV PRN (09:30)
== END 2020-12-18 14:01 | DRG 812 ==
LOC: EDBD 21:46 → ER 21:48 → TELE 12-16 02:45 → ICU WEST 12-16 03:36
PROVIDERS: ADMIT Nurse Practitioner; ATTEND Internal Medicine
PROC: 4A143B0 Monitoring of Venous Pressure, Central, Percutaneous Approach (ICD-10-PCS; 2020-12-15)
PROC: 06HM33Z Insertion of Infusion Device into Right Femoral Vein, Percutaneous Approach (ICD-10-PCS; 2020-12-15)
PROC: 5A1945Z Respiratory Ventilation, 24-96 Consecutive Hours (ICD-10-PCS; principal; 2020-12-16)
PROC: 0BH17EZ Insertion of Endotracheal Airway into Trachea, Via Natural or Artificial Opening (ICD-10-PCS; 2020-12-16)
PROC: 5A12012 Performance of Cardiac Output, Single, Manual (ICD-10-PCS; 2020-12-16)
DX: T43.621A Poisoning by amphetamines, accidental (unintentional), initial encounter (principal); G93.5 Compression of brain; G93.6 Cerebral edema; I21.A1 Myocardial infarction type 2; I46.9 Cardiac arrest, cause unspecified; G93.1 Anoxic brain damage, not elsewhere classified; K86.0 Alcohol-induced chronic pancreatitis; J96.02 Acute respiratory failure with hypercapnia; J96.01 Acute respiratory failure with hypoxia; N17.0 Acute kidney failure with tubular necrosis; F15.10 Other stimulant abuse, uncomplicated; K72.00 Acute and subacute hepatic failure without coma; Z20.822 Contact with and (suspected) exposure to COVID-19; D75.89 Other specified diseases of blood and blood-forming organs; R65.11 Systemic inflammatory response syndrome (SIRS) of non-infectious origin with acute organ dysfunction; G93.41 Metabolic encephalopathy; F17.210 Nicotine dependence, cigarettes, uncomplicated; E87.2 Acidosis; I10 Essential (primary) hypertension; K21.9 Gastro-esophageal reflux disease without esophagitis; F19.10 Other psychoactive substance abuse, uncomplicated; Z51.5 Encounter for palliative care; Z80.3 Family history of malignant neoplasm of breast; Z82.49 Family history of ischemic heart disease and other diseases of the circulatory system; Z83.3 Family history of diabetes mellitus; Z85.07 Personal history of malignant neoplasm of pancreas; Z90.49 Acquired absence of other specified parts of digestive tract; Z95.1 Presence of aortocoronary bypass graft; Z88.1 Allergy status to other antibiotic agents; Z88.5 Allergy status to narcotic agent; Z88.0 Allergy status to penicillin; Z88.8 Allergy status to other drugs, medicaments and biological substances
CPT/HCPCS: 36415; 36600; 70450; 71045; 74176; 80048; 80053; 80074; 80307; 81001; 82550; 82553; 82607; 82746; 82805; 83036; 83605; 83735; 84100; 84443; 84484; 85007; 85025; 85027; 85379; 85610; 85730; 87040; 87070; 87081; 87205; 87426; 93005; 93306; 93970; 94002; 94003; 95819; 96365; 96375; C9113; G0378; J1956; J2250; J3490